=== PATIENT | male | born 1990 | race Caucasian/White ===

== ENCOUNTER 2020-11-27 09:36 | Emergency (ER) | payer MEDICAID ==
[~2020-11-27] VITALS: Ht 180.3 cm; Wt 160.0 kg
[2020-11-27] MEDS ORDERED: AMOX-100 PO (10:14)
[2020-11-27] MEDS ORDERED: TRAM50TA2 PO (10:14)
== END 2020-11-27 10:34 | disposition home or self-care (01) ==
LOC: ER 09:37
DX: K02.9 Dental caries, unspecified (principal); E11.9 Type 2 diabetes mellitus without complications; Z79.2 Long term (current) use of antibiotics; Z79.899 Other long term (current) drug therapy
CPT/HCPCS: 99283